=== PATIENT | female | born 1990 | race Caucasian/White ===

== ENCOUNTER 2019-02-23 16:11 | Emergency (ER) | payer OTHER ==
[2019-02-23 16:28] VITALS: BP 139/75
--- NOTE | 2019-02-23 16:38 | UC ---
Lower Extremity/Ankle HPI - HPI Summary HPI Summary: 28yo female presenting with L ankle/foot pain after she fell down two steps at work. States hurt worse at time of injury and now sharp pain with weight bearing and touch. States able to ambulate but it hurts. Denies swelling and bruising. Denies numbness and tingling. Denies decreased ROM. States she has iced it with some relief. - History of Current Complaint Chief Complaint: UCLowerExtremity Stated Complaint: LEFT ANKLE INJURY Hx Obtained From: Patient Hx Last Menstrual Period: 02/13/19 Pain Intensity: 6 Pain Scale Used: 0-10 Numeric - Allergies/Home Medications Allergies/Adverse Reactions: Allergies Allergy/AdvReac Type Severity Reaction Status Date / Time Penicillins Allergy Severe Hives Verified 02/23/19 16:28 Home Medications: Home Medications Levothyroxine TAB* [Synthroid 100 MCG TAB*] 1 tab PO DAILY 02/23/19 [History Confirmed 02/23/19] PMH/Surg Hx/FS Hx/Imm Hx Previously Healthy: Yes Endocrine History: Hypothyroidism - Surgical History Surgical History: None - Family History Known Family History: Positive: Non-Contributory - Social History Alcohol Use: None Substance Use Type: None Smoking Status (MU): Never Smoked Tobacco Review of Systems All Other Systems Reviewed And Are Negative: Yes Constitutional: Positive: Negative Skin: Negative: Bruising Respiratory: Positive: Negative Cardiovascular: Positive: Negative Neurovascular: Positive: Negative Musculoskeletal: Positive: Arthralgia - L ankle /foot. Negative: Decreased ROM , Edema Neurological: Negative: Weakness, Paresthesia, Numbness Physical Exam Triage Information Reviewed: Yes Appearance: Well-Appearing, No Pain Distress, Well-Nourished Vital Signs: Initial Vital Signs Temp 99 F 02/23/19 16:24 Pulse 69 02/23/19 16:24 Resp 16 02/23/19 16:24 BP 139/75 02/23/19 16:24 Pulse Ox 100 02/23/19 16:24 Vital Signs Reviewed: Yes Eyes: Positive: Conjunctiva Clear ENT: Positive: Hearing grossly normal Neck: Positive: Supple Respiratory: Positive: No respiratory distress Cardiovascular: Positive: Pulses Normal - strong pedal pulses, Brisk Capillary Refill - <2 sec Musculoskeletal: Positive: No Edema, ROM Limited @ - L foot inversion d/t pain, Other: - tenderness to palpation of anterolateral L ankle and L lateral midfoot Neurological Exam: Other - sensation grossly intact Neurological: Positive: Alert Psychological: Positive: Age Appropriate Behavior Skin Exam: Normal - no erythema or ecchymosis noted Diagnostics - Radiology L foot Radiology Interpretation Completed By: Radiologist Summary of Radiographic Findings: IMPRESSION: No fracture of the left foot is noted. L ankle Radiology Interpretation Completed By: Radiologist Summary of Radiographic Findings: IMPRESSION: No fracture of the left ankle is noted. Lower Extremity Course/Dx - Course Course Of Treatment: Discussed normal radiographs of L foot and ankle. Instructed to continue with symptomatic treatment and follow up with pcp or ortho if symptoms persist. Patient voiced understanding and agreed with treatment plan. - Differential Dx/Diagnosis Differential Diagnosis/HQI/PQRI: Fracture (Open), Sprain, Strain Provider Diagnosis: Left ankle sprain Discharge ED - Sign-Out/Discharge Documenting (check all that apply): Patient Departure All imaging exams completed and their final reports reviewed: Yes - Discharge Plan Condition: Stable Disposition: HOME Patient Education Materials: Ankle Sprain (ED) Referrals: Lucrecia Gay MD [Primary Care Provider] - If Needed Jimi Thapa MD [Medical Doctor] - If Needed Additional Instructions: As discussed, the xrays did not show any abnormalities. Rest, ice, elevate, and use the kehinde wrap to help alleviate pain. You may also take over the counter pain medications as directed. Follow up with your primary care provider or sports medicine listed below if pain persists. - Billing Disposition and Condition Condition: STABLE Disposition: Home
== END 2019-02-23 18:09 | disposition home or self-care (01) ==
LOC: UCEAST 16:11
DX: S93.402A Sprain of unspecified ligament of left ankle, initial encounter (principal); E03.9 Hypothyroidism, unspecified; W10.9XXA Fall (on) (from) unspecified stairs and steps, initial encounter; Y92.9 Unspecified place or not applicable; Z79.890 Hormone replacement therapy; Z88.0 Allergy status to penicillin
CPT/HCPCS: 99202; G0463